=== PATIENT | male | born 1970 | race Caucasian/White ===

== ENCOUNTER 2020-10-30 13:15 | Emergency (ER) | payer MEDICAID ==
[2020-10-30 13:36] LABS: BASOPHILS % (AUTO) 0.4 % (0.0-5.0); HEMATOCRIT 47.1 % (42-54); LYMPHOCYTES % (AUTO) 16.6 % (21.0-51.0); MEAN CORPUSCULAR HEMOGLOBIN 28.9 pg (27.0-33.0); MEAN CORPUSCULAR HGB CONC 33.3 g/dL (32.0-36.0); MEAN CORPUSCULAR VOLUME 86.6 fL (79-99); MONOCYTES % (AUTO) 4.8 % (3.0-13.0); NEUTROPHILS % (AUTO) 77.9 % (40.0-77.0); PLATELET COUNT (AUTO) 192 K/uL (130-400); RED BLOOD CELL COUNT(AUTO) 5.44 MIL/uL (4.50-6.20); RED CELL DISTRIBUTION WIDTH 12.2 % (11.0-15.5); WHITE BLOOD COUNT (AUTO) 7.8 K/uL (4.8-10.8)
[2020-10-30] MEDS ORDERED: ONDANSETRON 4MG INJ ONE (13:48)
[2020-10-30] MEDS ORDERED: MORPHINE 4 MG SYG ONE (13:48)
[2020-10-30] MEDS ORDERED: 0.9%NACL 1000ML 1,000 ML IV ONE ×2 (13:48)
[2020-10-30 14:22] LABS: APPEARANCE,URINE Clear (CLEAR); BILIRUBIN,URINE Negative (NEGATIVE); COLOR,URINE Yellow (YELLOW); GLUCOSE, URINE (UA) Negative (NEGATIVE); KETONES,URINE 40 mg/dL (NEGATIVE); LEUKOCYTE ESTERASE ,URINE Negative (NEGATIVE); NITRATE,URINE Negative (NEGATIVE); OCCULT BLOOD,URINE Negative (NEGATIVE); PROTEIN,URINE Negative (NEGATIVE); UROBILINOGEN,URINE 0.2 mg/dL (0.2-1.0)
[2020-10-30 15:00] LABS: ALBUMIN 3.6 g/dL (3.5-5.0); BILIRUBIN,TOTAL 0.4 mg/dL (0.2-1.0); CREATININE 1.3 mg/dL (0.5-1.5); POTASSIUM 4.6 mmol/L (3.5-5.1); TOTAL PROTEIN, SERUM 7.4 g/dL (6.0-8.3)
[2020-10-30] MEDS ORDERED: IOHEXOL-350 75 ML VIAL IV ONE (15:22)
== END 2020-10-30 17:28 | disposition home or self-care (01) ==
LOC: EDH 13:15
DX: R10.9 Unspecified abdominal pain (principal); M54.5 Low back pain; R35.0 Frequency of micturition; Z87.891 Personal history of nicotine dependence
CPT/HCPCS: 36415; 74177; 80053; 81003; 84484; 85025; 93005; 96361; 96374; 96375; 99285; J2270; J2405; J7030 ×2; Q9967